=== PATIENT | male | born 1995 | race Caucasian/White ===

== ENCOUNTER → 2022-10-06 | Outpatient (CLI) | payer OTHER | LOC: M PLARAD 13:01 | PROVIDERS: ATTEND Podiatrist Foot & Ankle Surgery | DX: M79.672 Pain in left foot (principal); S93.402D Sprain of unspecified ligament of left ankle, subsequent encounter; Z98.890 Other specified postprocedural states ==

== ENCOUNTER → 2023-05-24 | Outpatient (REF) | LOC: M PLAIMG 12:05 | PROVIDERS: ATTEND Internal Medicine | DX: M19.92 Post-traumatic osteoarthritis, unspecified site (principal) ==

== ENCOUNTER → 2023-06-08 | Outpatient (REF) | LOC: M PLAIMG 08:20 | PROVIDERS: ATTEND Internal Medicine | DX: R06.02 Shortness of breath (principal) ==